=== PATIENT | female | born 1980 | race Caucasian/White ===

== ENCOUNTER 2017-12-05 03:55 | Emergency (ER) | payer BC, OTHER ==
[2017-12-05] MEDS: IPRATROPIUM (NEB) 0.5 MG/2.5 ML AMP HHN (04:14)
[2017-12-05] MEDS: DEXAMETHASONE 4 MG TAB PO (04:30)
[2017-12-05] MEDS: LORAZEPAM 2 MG INJ IV ×2 (04:33→07:19)
[2017-12-05 04:55] LABS: URINE BLOOD (Dip) POC 2+ (NEGATIVE); URINE GLUCOSE (Dip) POC Negative (NEGATIVE); URINE KETONES (Dip) POC Negative (NEGATIVE); URINE LEUKOCYTE EST (Dip) POC Negative (NEGATIVE); URINE NITRITE (Dip) POC Negative (NEGATIVE); URINE TOTAL PROTEIN POC Negative (NEGATIVE)
[2017-12-05 05:36] LABS: ADD MAN DIFF? NO
[2017-12-05 05:45] LABS: BASOPHIL # 0.1 10^3/ul (0.0-0.1); BASOPHILS % 0.4 % (0.0-2.0); EOSINOPHILS # 0.1 10^3/ul (0.0-0.5); EOSINOPHILS % 0.5 % (0.0-7.0); HEMOGLOBIN 12.1 g/dl (12.0-16.0); LYMPHOCYTES # 1.8 10^3/ul (0.8-2.9); LYMPHOCYTES % 13.9 % (15.0-51.0); MEAN CORPUSCULAR HEMOGLOBIN 30.6 pg (29.0-33.0); MEAN CORPUSCULAR HGB CONC 33.6 g/dl (32.0-37.0); MEAN CORPUSCULAR VOLUME 90.9 fl (82.0-101.0); MEAN PLATELET VOLUME 10.3 fl (7.4-10.4); MONOCYTE # 0.7 10^3/ul (0.3-0.9); MONOCYTES % 5.1 % (0.0-11.0); NEUTROPHIL # 10.4 10^3/ul (1.6-7.5); NEUTROPHILS % 79.7 % (39.0-77.0); PLATELET COUNT 289 10^3/UL (140-415); RED BLOOD COUNT 3.96 10^6/ul (4.20-5.40)
[2017-12-05 05:58] LABS: ANION GAP 14 (8-16); BLOOD UREA NITROGEN 12 mg/dl (7-20); CALCIUM 9.3 mg/dl (8.4-10.2); CARBON DIOXIDE 24 mmol/L (21-31); CHLORIDE 109 mmol/L (97-110); GLUCOSE 105 mg/dl (70-220); POTASSIUM 3.2 mmol/L (3.5-5.1); SODIUM 144 mmol/L (135-144)
[2017-12-05 06:04] LABS: BARBITURATES Negative (NEGATIVE); BENZODIAZEPINES Negative (NEGATIVE); CANNABINOIDS Negative (NEGATIVE); COCAINE Negative (NEGATIVE); OPIATES Negative (NEGATIVE)
[2017-12-05 06:11] LABS: B-TYPE NATRIURETIC PEPTIDE 64 PG/ML (0-125); TROPONIN-I < 0.012 ng/ml (0.000-0.120)
[2017-12-05 06:24] LABS: AMPHETAMINE/METHAMPHETAMINE Positive (NEGATIVE)
[2017-12-05 06:40] LABS: D-DIMER 1163.32 ng/ml (<460)
[2017-12-05] MEDS: SOD CHLORIDE 0.9% 1,000 ML IV (07:06)
[2017-12-05] MEDS: SOD CHLORIDE 0.9% 100 ML (08:13)
[2017-12-05] MEDS: IOHEXOL 100 ML (08:13)
== END 2017-12-05 11:35 | disposition home or self-care (01) ==
LOC: E/R 03:55
DX: J40 Bronchitis, not specified as acute or chronic (principal); R40.2142 Coma scale, eyes open, spontaneous, at arrival to emergency department; R40.2252 Coma scale, best verbal response, oriented, at arrival to emergency department; R40.2362 Coma scale, best motor response, obeys commands, at arrival to emergency department
CPT/HCPCS: 36415; 71045; 71275; 80048; 80307; 81003; 83880; 84484; 85025; 85378; 93005; 94664; 96374; 96376; 99285-25